=== PATIENT | male | born 1960 | race Caucasian/White ===

== ENCOUNTER 2016-06-27 06:43 | Observation (INO) | payer OTHER ==
--- NOTE | 2016-06-27 06:53 | CPEKG ---
Heart Rate: 70 RR Interval: 857 P-R Interval: 184 QRSD Interval: 98 QT Interval: 416 QTC Interval: 449 P [place]: 43 QRS [place]: -29 T Wave [place]: 43 EKG Severity - OTHERWISE NORMAL ECG - EKG Impression: SINUS RHYTHM EKG Impression: BORDERLINE LEFT AXIS DEVIATION Electronically Signed By: Ni Hunt 27-Jun-2016 07:17:55
--- NOTE | 2016-06-27 06:56 | EDPHY ---
H & P Time Seen by Provider: 06/27/16 06:53 HPI/ROS: CHIEF COMPLAINT: Shortness of breath, chest pain. HISTORY OF PRESENT ILLNESS: The patient is a 56-year-old male with a history of CAD, MD, and cardiac stent who presents with shortness of breath and chest pain. He first became short of breath last night. This morning when he got to work he became diaphoretic and the shortness of breath worsened. 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 He developed non-radiating dull left-sided chest pain on the ride to the hospital and still has mild left-sided discomfort. This is similar to his previous heart attack. He was diagnosed with bronchitis on Wednesday and has been on antibiotics since. He has been using an inhaler. He admits ongoing dry cough. He denies fever, peripheral edema, calf pain or swelling, recent travel, or other complaints. His father had a history of CAD in his 60s and of an MD at 79. REVIEW OF SYSTEMS: A ten point review of systems was performed and is negative with the exception of the items mentioned in the HPI. Source: Patient Exam Limitations: No limitations - Medical/Surgical History PMH: 1. CAD 2. MD 3. Cardiac stent 4. Hyperlipidemia 5. Hypertension I reviewed the patient's past medical notes including Discharge Summary dated . Hx Asthma: No Hx Chronic Respiratory Disease: No Hx Diabetes: No Hx Cardiac Disease: Yes Hx Renal Disease: No Hx Cirrhosis: No Hx Alcoholism: No Hx HIV/AIDS: No Hx Splenectomy or Spleen Trauma: No Other PMH: 1. Coronary artery disease, status post LAD stenting. 2. Anxiety - Family History Significant Family History: Heart disease - Social History Smoking Status: Current every day smoker Additional Social History: 1. Former smoker. 2. Here with partner. - Physical Exam Exam: General Appearance: Alert. Vital signs reviewed. BP 153/93. * Eyes: Pupils equal and round, no conjunctival injection, no discharge. Anicteric. ENT, Mouth: Mucous membranes are moist, no oropharyngeal erythema or edema. Neck: No lymphadenopathy, supple. Respiratory: Lungs are clear to auscultation; no wheezes, rales, or rhonchi. Mildly tachypneic. Cardiovascular: Regular rate and rhythm; no murmur, rub, or gallop. Gastrointestinal: Abdomen is soft and nontender, no masses or organomegaly, bowel sounds normal. Skin: Warm and dry, no rashes on exposed skin, normal color. Back: Nontender to palpation over the thoracolumbar spine. No CVAT. Extremities: No lower extremity edema, no calf tenderness or swelling. Neurological: Alert and oriented. Moving all four extremities easily and equally. Psychiatric: Normal affect. Constitutional: Initial Vital Signs Temperature (C) 36.4 C 06/27/16 06:58 Heart Rate 73 06/27/16 06:58 Respiratory Rate 24 H 06/27/16 06:58 Blood Pressure 153/93 H 06/27/16 06:58 O2 Sat (%) 98 06/27/16 06:58 O2 Delivery Mode Room Air Allergies/Adverse Reactions: No Known Allergies Allergy (Verified 01/26/16 09:36) Home Medications: Medication Instructions Recorded Albuterol [Proventil Inhaler HFA 1 - 2 puffs IH Q4H PRN 06/27/16 (*)] Amoxicillin/Clavulanate Pot 875 mg PO BID 06/27/16 [Augmentin 875 MG TAB (*)] Aspirin [Aspirin 81mg (*)] 81 mg PO DAILY 06/27/16 Atorvastatin Calcium [Lipitor 80 80 mg PO HS 06/27/16 mg] Benzonatate [Tessalon Pearles (RX)] 100 mg PO Q6H PRN 06/27/16 Carvedilol [Coreg (*)] 3.125 mg PO BIDMEAL 06/27/16 Cholecalciferol Vit D3 [Vitamin D3 5,000 units PO DAILY 06/27/16 (*)] Clopidogrel Bisulfate [Plavix (*)] 75 mg PO DAILY 06/27/16 Cyanocobalamin [Vitamin B12 (*)] 5,000 mcg PO DAILY 06/27/16 Herbals/Supplements -Info Only 1 ea PO DAILY 06/27/16 Sertraline HCl [Zoloft 50mg (*)] 50 mg PO DAILY 06/27/16 hydrOXYzine HCL 50 mg PO Q6H PRN 06/27/16 traZODone [traZODONE 100MG (*)] 100 mg PO HS PRN 06/27/16 Medical Decision Making - Diagnostics EKG Interpretation: The 12 lead EKG was interpreted by myself. See hard copy and/or "tracemaster" electronic copy for interpretation. Sinus rhythm, borderline left axis deviation. Imaging: Imaging Impressions Chest X-Ray 06/27/16 07:07 Impression: Central bronchitis, otherwise negative chest.. ED Course/Re-evaluation: 56-year-old male with a history of CAD, MD, and cardiac stenting in January of 2016, who presents with shortness of breath and left-sided chest pain. He describes an episode of worsening shortness of breath this morning while exerting himself at work during which he became diaphoretic. He then developed chest pain that he still has on presentation. His symptoms today are all very similar to when he had his previous MD in January 2016. He has been taking an antibiotic since Wednesday for bronchitis. He does have increased work of breathing. Oxygen saturation 99% on room air. An IV was established and labs ordered including cardiac enzymes. Chest x-ray, EKG obtained. 243mg PO Aspirin administered; he had taken a baby aspirin this morning. He felt somewhat better after receiving a DuoNeb. Lungs remain clear. I doubt pneumonia. His presentation in January of 2016, at which time he was found of 99% lad stenosis and underwent stenting, was with chest pain. He had 2-troponins but a small apical defect on a nuclear stress test. He did have chest pain while on the treadmill which prompted his cardiac catheterization. I independently viewed the patient's chest x-ray on the PACS system. My interpretation: bronchitis. Please see Imaging section for official radiologist report. I reviewed the patient's laboratory studies. Troponin, BNP, and d-dimer are negative. Lab work is otherwise unremarkable. 0746: Reassessed patient and discussed results of chest x-ray and lab work. I recommended admission for further cardiac workup and rule-out. He is comfortable with this plan. 0757: Consulted with Alicia Osborn, hospitalist. She accepts admission for Dr. Velasquez. Differential Diagnosis: Chest pain including but not limited to myocardial ischemia, pulmonary embolus, chest wall pain, pleural inflammation and pulmonary infectious causes. - Data Points Laboratory Results: Laboratory Results 06/27/16 06:52 06/27/16 06:52 06/27/16 06/27/16 06/27/16 06:52 06:52 06:52 WBC 10.43 10^3/uL H 10^3/uL (3.80-9.50) RBC 5.59 10^6/uL 10^6/uL (4.40-6.38) Hgb 16.9 g/dL g/dL (13.7-17.5) Hct 47.9 % % (40.0-51.0) MCV 85.7 fL fL (81.5-99.8) MCH 30.2 pg pg (27.9-34.1) MCHC 35.3 g/dL g/dL (32.4-36.7) RDW 12.3 % % (11.5-15.2) Plt Count 210 10^3/uL 10^3/uL (150-400) MPV 9.6 fL fL (8.7-11.7) Neut % (Auto) 80.1 % H % (39.3-74.2) Lymph % (Auto) 11.0 % L % (15.0-45.0) Dickens % (Auto) 6.1 % % (4.5-13.0) Eos % (Auto) 1.8 % % (0.6-7.6) Baso % (Auto) 0.5 % % (0.3-1.7) Nucleat RBC Rel Count 0.0 % % (0.0-0.2) Absolute Neuts (auto) 8.35 10^3/uL H 10^3/uL (1.70-6.50) Absolute Lymphs (auto) 1.15 10^3/uL 10^3/uL (1.00-3.00) Absolute Monos (auto) 0.64 10^3/uL 10^3/uL (0.30-0.80) Absolute Eos (auto) 0.19 10^3/uL 10^3/uL (0.03-0.40) Absolute Basos (auto) 0.05 10^3/uL 10^3/uL (0.02-0.10) Absolute Nucleated RBC 0.00 10^3/uL 10^3/uL (0-0.01) Immature Gran % 0.5 % % (0.0-1.1) Immature Gran # 0.05 10^3/uL 10^3/uL (0.00-0.10) D-Dimer < 0.27 ug/mLFEU ug/mLFEU (0.00-0.50) Sodium 141 mEq/L mEq/L (134-144) Potassium 4.1 mEq/L mEq/L (3.5-5.2) Chloride 108 mEq/L mEq/L (97-110) Carbon Dioxide 19 mEq/l L mEq/l (22-31) Anion Gap 14 mEq/L mEq/L (8-16) BUN 13 mg/dL mg/dL (7-23) Creatinine 0.7 mg/dL mg/dL (0.7-1.3) Estimated GFR > 60 Glucose 149 mg/dL H mg/dL (70-100) Calcium 9.6 mg/dL mg/dL (8.5-10.4) Troponin I < 0.012 ng/mL ng/mL (0-0.034) NT-Pro-B Natriuret Pep 28 pg/mL pg/mL (0-125) Medications Given: Discontinued Medications Albuterol/Ipratropium (Duoneb) 3 ml IH EDNOW ONE Stop: 06/27/16 07:11 Last Admin: 06/27/16 07:16 Dose: 3 ml Aspirin (Aspirin) 243 mg PO EDNOW ONE Stop: 06/27/16 07:10 Last Admin: 06/27/16 07:16 Dose: 243 mg Diazepam (Valium) 5 mg PO ONCALL ONE Stop: 06/27/16 13:17 Last Admin: 06/27/16 14:58 Dose: 5 mg Diphenhydramine HCl (Benadryl) 25 mg PO ONCALL ONE Stop: 06/27/16 13:17 Last Admin: 06/27/16 14:58 Dose: 25 mg Ibuprofen (Motrin) 600 mg PO ONCE ONE Stop: 06/27/16 11:38 Last Admin: 06/27/16 11:58 Dose: 600 mg Nitroglycerin (Nitrostat) 0.4 mg SL ONCE ONE Stop: 06/27/16 11:18 Last Admin: 06/27/16 11:28 Dose: 0.4 mg Departure - Departure Disposition: [facility] In[facility] Acute Clinical Impression: Bronchitis, Shortness of breath Chest pain Qualifiers: Chest pain type: unspecified Qualified Code(s): R07.9 - Chest pain, unspecified Condition: Fair Report Scribed for: Ni Hunt Report Scribed by: Slade Bansal Date of Report: 06/27/16 Time of Report: 06:59 Physician Review and Approval Statement: 06/27/16 06:56 Portions of this note were transcribed by the medical voucher clerk. I, Dr. Ni Hunt, personally performed the history, physical exam, and medical decision- making; and confirmed the accuracy of the information in the transcribed note.
[2016-06-27] MEDS ORDERED: ASPIRIN 81 MG CHEWABLE TAB PO ONE (07:09)
[2016-06-27] MEDS ORDERED: IPRATROPIUM/ALBUTEROL 3 ML DEYVIAL IH ONE (07:10)
[2016-06-27] MEDS ORDERED: IPRATROPIUM/ALBUTEROL 3 ML DEYVIAL ONE (07:11)
[2016-06-27] MEDS ORDERED: ASPIRIN 81 MG CHEWABLE TAB ONE (07:11)
[2016-06-27 07:16] LABS: % IMMATURE GRANULYOCYTES 0.5 % (0.0-1.1); ABSOLUTE IMMATURE GRANULOCYTES 0.05 10^3/uL (0.00-0.10); ADD DIFF? NO; ADD MORPH? NO; ADD SCAN? NO; ATYPICAL LYMPHOCYTE FLAG 0 (0-99); FRAGMENT RBC FLAG 0 (0-99); HEMATOCRIT 47.9 % (40.0-51.0); HEMOGLOBIN 16.9 g/dL (13.7-17.5); LEFT SHIFT FLG 0 (0-99); LIPEMIA HEMOLYSIS FLAG 90 (0-99); MEAN CELL HEMOGLOBIN 30.2 pg (27.9-34.1); MEAN CELL HEMOGLOBIN CONCENTR. 35.3 g/dL (32.4-36.7); MEAN CELL VOLUME 85.7 fL (81.5-99.8); MEAN PLATELET VOLUME 9.6 fL (8.7-11.7); PLATELET CLUMPS FLAG 80 (0-99); PLATELET COUNT 210 10^3/uL (150-400); RED BLOOD CELL COUNT 5.59 10^6/uL (4.40-6.38); RED CELL DISTRIBUTION WIDTH 12.3 % (11.5-15.2)
[2016-06-27 07:23] LABS: ANION GAP 14 mEq/L (8-16); CALCIUM 9.6 mg/dL (8.5-10.4); CARBON DIOXIDE 19 mEq/l (22-31); CHLORIDE 108 mEq/L (97-110); CREATININE 0.7 mg/dL (0.7-1.3); GLOMERULAR FILTRATION RATE > 60; GLUCOSE 149 mg/dL (70-100); POTASSIUM 4.1 mEq/L (3.5-5.2); SODIUM 141 mEq/L (134-144)
[2016-06-27 07:35] LABS: TROPONIN I < 0.012 ng/mL (0-0.034)
[2016-06-27] MEDS ORDERED: traZODone 100 MG TAB PO PRN (11:16)
[2016-06-27] MEDS ORDERED: ALBUTEROL 60 PUFFS/8 GM MDI IH PRN (11:16)
[2016-06-27] MEDS ORDERED: NITROGLYCERIN 0.4 MG BTL SL ONE (11:17)
[2016-06-27] MEDS ORDERED: IBUPROFEN 600 MG TAB PO ONE (11:37)
[2016-06-27] MEDS: AMOXICILLIN/CLAVULANATE POT 875/125 MG TAB PO SCH ×2 (11:47→20:38)
[2016-06-27] MEDS: CLOPIDOGREL BISULFATE 75 MG TAB PO SCH (11:47)
[2016-06-27] MEDS ORDERED: NITROGLYCERIN 0.4 MG BTL SL PRN (13:16)
[2016-06-27] MEDS ORDERED: DIAZEPAM 5 MG TAB PO ONE (13:16)
[2016-06-27] MEDS ORDERED: ACETAMINOPHEN 325 MG TAB PO PRN ×2 (13:16→13:56)
[2016-06-27] MEDS ORDERED: TEMAZEPAM 15 MG CAP PO PRN (13:16)
[2016-06-27] MEDS ORDERED: diphenhydrAMINE 25 MG CAP PO ONE (13:16)
[2016-06-27] MEDS ORDERED: ONDANSETRON DISINTEGRATING 4 MG TAB PO PRN (13:56)
[2016-06-27] MEDS ORDERED: ONDANSETRON 4 MG/2 ML VIAL IVP PRN (13:56)
--- NOTE | 2016-06-27 14:21 | GHP ---
[f rep st] HISTORY AND PHYSICAL DATE OF ADMISSION: 06/27/2016 CHIEF COMPLAINT: Chest pain. HISTORY OF PRESENT ILLNESS: This is a 56-year-old male with a history of coronary artery disease. He presented last fall with dyspnea on exertion and intermittent chest pain. He had a marginally ab normal stress test and was found to have a 99% LAD lesion. He states he had been doing well until a bout several weeks ago when he developed an upper respiratory tract infection that has progressed to bronchitis. He has been sick for the last 3 weeks. He has had a cough with green productive sputu m. He recently also had some fevers and chills. He was started on Augmentin a few days ago. He st ates that today he started having chest pain which is a pressure and with some radiation to his left arm. This is associated with some shortness of breath. This is very similar to a previous chest p ain that he had with his coronary artery disease. No recent fevers or chills. He still has a small amount of left-sided chest pain, although it is better. REVIEW OF SYSTEMS: A 10-point review of systems was obtained and otherwise negative. PAST MEDICAL HISTORY: 1. Coronary artery disease status post stenting to LAD. 2. Anxiety. 3. Hypertension. SOCIAL HISTORY: Quit smoking. No alcohol. FAMILY HISTORY: Father had coronary artery disease in his 60s. PHYSICAL EXAM: VITAL SIGNS: Afebrile, blood pressure is 100/63, heart rate 82, oxygen saturation 9 6% on room air. GENERAL: The patient is well developed, in no apparent distress. HEENT: Nonicter ic sclerae. Extraocular movements intact. Moist mucous membranes. NECK: Supple. No thyromegaly. LUNGS: Good effort. Clear to auscultation bilaterally. CARDIOVASCULAR: Regular rate and rhythm . No murmurs or gallops. ABDOMEN: Positive bowel sounds. Soft, nontender, nondistended. No hepa tosplenomegaly. EXTREMITIES: No clubbing, cyanosis, or edema. SKIN: Without rash. Dry and intac t. NEUROLOGIC: Moving all 4 extremities equally. PSYCH: Normal affect. LABS: White blood cell count slightly elevated at 10, troponins are negative x2. EKG personally re viewed and interpreted shows no ischemic changes. Chest x-ray personally reviewed and interpreted s hows some bronchitis. ASSESSMENT: This is a 56-year-old male with a history of coronary artery disease presenting with sy mptoms consistent with his previous unstable angina. PLAN: 1. Rule out unstable angina. The patient's troponins are negative and thus he is probably not havi ng an acute coronary syndrome at this time. I did discuss the case with Cardiology and he will prob ably undergo a heart catheterization due to the extreme similarity between his symptoms now and prev ious. If that is negative, he can probably be discharged home. 2. Bronchitis. We will continue the Augmentin that was started by his PCP. /[id number]/MODL
[2016-06-27] MEDS ORDERED: LIDOCAINE 1% 30 ML SDV ONE (14:53)
[2016-06-27] MEDS ORDERED: fentaNYL 100 MCG/2 ML INJ ONE (14:53)
[2016-06-27] MEDS ORDERED: IOPAMIDOL (ISOVUE-370) 150 ML BTL IV ONE (14:54)
[2016-06-27] MEDS ORDERED: VERAPAMIL 5 MG/2 ML VIAL ONE (14:54)
[2016-06-27] MEDS ORDERED: HEPARIN 10,000 UNIT/10 ML MDV ONE (14:54)
[2016-06-27] MEDS ORDERED: MIDAZOLAM 2 MG/2 ML VIAL ONE (14:54)
[2016-06-27] MEDS ORDERED: ETOMIDATE 40 MG/20 ML INJ ONE (15:19)
[2016-06-27] MEDS ORDERED: ATROPINE SULFATE 1 MG/10 ML SYR IVP PRN (15:49)
--- NOTE | 2016-06-27 16:56 | CPIP ---
[f rep st] INVASIVE CARDIAC PROCEDURE DATE OF PROCEDURE: 06/27/2016 PROCEDURE PERFORMED: 1. Selective coronary angiography. 2. Left heart catheterization. 3. Left ventriculogram. 4. TR-Band arteriotomy repair. This is a right radial approach. COMPLICATIONS: None. INDICATION FOR THE PROCEDURE: Presentation to the hospital with CCS Class IV symptoms of angina, ty pical of angina that he had prior to stent implantation. Specifically the patient was evaluated twi ce here in the hospital with negative noninvasive testing, including a nuclear stress test, before f inally, on his 3rd admission, being cathed by Dr. Elvis Ferraro, documenting a 99% obstruction of the LAD, which was successfully stented with a 2.25 mm stent. The patient presents with similar sym ptoms, and I am worried, given his history of a negative nuke with active disease, that a negative n uke would not be very reassuring given his symptoms. I, of course, explained to the patient that th e risk of a true restenoses rate was probably less than 10%. In any case, we agreed to proceed with cardiac catheterization as the most definitive test to rule out a problem. PROCEDURE IN DETAIL: After informed consent was obtained, n.p.o. status was confirmed, the region o f the right wrist was cleaned, prepped, and draped in sterile fashion. A plethysmography tracer ass isted Juliocesar test was performed, documenting dual arterial supply to the right hand and index finger. The patient then underwent the previously mentioned diagnostic procedure with the use of JL4 and A lphacurve coronary catheters, as well as a 5-[place] pigtail catheter. Standard wire exchange techni que was utilized for all catheter exchanges. The right coronary artery is dominant, giving rise to the posterior descending and posterior lateral ventricular branch. There are luminal irregularities consistent with underlying atherosclerosis. Maximal luminal stenosis is in the proximal portion of the blood vessel, estimated approximately 10% to 20%. The left main coronary lumen is approximately 6 mm in size. It bifurcates into an LAD and circumfle x system. The proximal circumflex is large, approximately 3 mm in size, and has diffuse luminal irr egularity consistent with underlying atherosclerosis. The LAD in its proximal segment is widely jordyn n, giving rise to 2 important diagonal branches. The distal LAD tapers fairly rapidly to a small ve ssel that has been previously stented with a 2.25 mm Synergy stent on January 27. The stent is w idely patent with 0% in-stent restenosis. There was excellent CHRISTOPHER-3 flow without a filling defect to suggest underlying thrombosis. The patient underwent left ventriculogram in the NORTH projection, demonstrating preserved left ventricular systolic function. Ejection fraction is 65%. No resting s egmental wall motion abnormalities were identified. The visualized portion of the thoracic aorta re veals 3 sinuses of Valsalva, most consistent with a trileaflet aortic valve. There was no evidence of a gradient upon pullback across the aortic valve, and the proximal portion of the thoracic aorta is normal in caliber without alex aneurysm or dissection. IMPRESSION AND PLAN: The patient has non flow-limiting coronary disease, with a widely open stent, with 0% residual stenosis or in-stent restenosis. The patient is a candidate for medical management , and should not receive a repeat catheterization for recurrent admissions for chest pain, unless th ere is objective evidence of ischemia, such as a changed or abnormal EKG, troponin elevation, alex myocardial infarction, or a large perfusion deficit on noninvasive nuclear medicine imaging. I have conferred these results to Dr. Britton Velasquez, who is the admitting physician. The patient could be a candidate for discharge this evening. /[id number]/MODL
[2016-06-27] MEDS: CARVEDILOL 3.125 MG TAB PO SCH (19:41)
[2016-06-27] MEDS ORDERED: ATORVASTATIN CALCIUM 40 MG TAB PO SCH (21:00)
[2016-06-27] MEDS ORDERED: NON-FORMULARY NEW DRUG (Atorvastatin Calcium [Lipitor 80 Mg] 80 MG) PO SCH (21:00)
[2016-06-28 01:12] VITALS: RESP 16
[2016-06-28 07:56] VITALS: BP 127/85; PULSE 74; TEMP 98.3; O2SAT 95
[2016-06-28] MEDS: AMOXICILLIN/CLAVULANATE POT 875/125 MG TAB PO SCH (08:44)
[2016-06-28] MEDS: CARVEDILOL 3.125 MG TAB PO SCH (08:44)
[2016-06-28] MEDS: CLOPIDOGREL BISULFATE 75 MG TAB PO SCH (08:44)
--- NOTE | 2016-06-28 08:48 | GDS ---
[f rep st] DISCHARGE SUMMARY DISCHARGE DIAGNOSES: 1. Acute bronchitis. 2. Noncardiac chest pain. 3. History of coronary artery disease. HISTORY: This is a 56-year-old male who had a history of a recent stenting to LAD, presenting with bronchitis and chest pain that was identical to previous angina. HOSPITAL COURSE: Patient was admitted. Cardiology was consulted. Due to the very similar nature o f his symptoms and the fact that his stress test was not very abnormal when he had a 99% stenosis of his LAD, he underwent heart catheterization. There was 0% restenosis. Chest pain has resolved and he is being discharged home. DISCHARGE MEDICATIONS: He is to resume all of his home medicines. He will also continue Augmentin for bronchitis. /[id number]/MODL
[2016-06-28] MEDS ORDERED: SERTRALINE HCL 50 MG TAB PO SCH (09:00)
[2016-06-28] MEDS ORDERED: ASPIRIN 81 MG CHEWABLE TAB PO SCH (09:00)
== END 2016-06-28 11:58 | disposition home or self-care (01) ==
LOC: UNDOADMOB 08:03 → F2W 09:01
PROVIDERS: ADMIT Internal Medicine; ATTEND Internal Medicine
PROC: B2151ZZ Fluoroscopy of Left Heart using Low Osmolar Contrast (ICD-10-PCS; principal; 2016-06-27)
PROC: B2111ZZ Fluoroscopy of Multiple Coronary Arteries using Low Osmolar Contrast (ICD-10-PCS; principal; 2016-06-27)
PROC: 4A023N7 Measurement of Cardiac Sampling and Pressure, Left Heart, Percutaneous Approach (ICD-10-PCS; principal; 2016-06-27)
DX: J20.9 Acute bronchitis, unspecified (principal); I20.9 Angina pectoris, unspecified; Z86.79 Personal history of other diseases of the circulatory system; Z82.49 Family history of ischemic heart disease and other diseases of the circulatory system; Z95.5 Presence of coronary angioplasty implant and graft; I25.2 Old myocardial infarction; E78.5 Hyperlipidemia, unspecified; I10 Essential (primary) hypertension; F17.210 Nicotine dependence, cigarettes, uncomplicated
CPT/HCPCS: 71020; 93005; 93458; C1769; G0378; J1644; J2250; J3010; Q9967

== ENCOUNTER 2017-06-18 06:02 | Day surgery (SDC) | payer OTHER ==
[2017-06-18] MEDS ORDERED: DIAZEPAM 5 MG TAB PO ONE (06:10)
[2017-06-18] MEDS ORDERED: ASPIRIN EC 325 MG TAB PO ONE ×2 (06:10→06:50)
[2017-06-18] MEDS ORDERED: diphenhydrAMINE 25 MG CAP PO ONE ×2 (06:10→06:49)
[2017-06-18] MEDS ORDERED: FAMOTIDINE 20 MG TAB PO ONE (06:10)
[2017-06-18] MEDS ORDERED: NS 1,000 ML IV ONE (06:10)
--- NOTE | 2017-06-18 06:46 | CPEKG ---
Heart Rate: 71 RR Interval: 845 P-R Interval: 176 QRSD Interval: 100 QT Interval: 404 QTC Interval: 439 P [place]: 58 QRS [place]: -37 T Wave [place]: 61 EKG Severity - OTHERWISE NORMAL ECG - EKG Impression: SINUS RHYTHM EKG Impression: LEFT AXIS DEVIATION Electronically Signed By: Chet Lee 18-Jun-2017 08:24:47
[2017-06-18] MEDS ORDERED: FAMOTIDINE 20 MG TAB ONE (06:49)
[2017-06-18] MEDS ORDERED: DIAZEPAM 5 MG TAB ONE (06:50)
[2017-06-18 06:56] LABS: PLATELET COUNT 140 10^3/uL (150-400)
[2017-06-18 07:06] LABS: PROTIME(PATIENT) 13.4 SEC (12.0-15.0)
[2017-06-18] MEDS ORDERED: fentaNYL 100 MCG/2 ML INJ ONE (09:37)
[2017-06-18] MEDS ORDERED: VERAPAMIL 5 MG/2 ML VIAL ONE (09:37)
[2017-06-18] MEDS ORDERED: LIDOCAINE 1% 300 MG/30 ML SDV ONE (09:37)
[2017-06-18] MEDS ORDERED: HEPARIN 10,000 UNIT/10 ML MDV (1,000 UNIT/ML) ONE (09:37)
[2017-06-18] MEDS ORDERED: MIDAZOLAM 2 MG/2 ML VIAL ONE (09:37)
[2017-06-18] MEDS ORDERED: IOPAMIDOL (ISOVUE-370) 150 ML BTL IV ONE (09:38)
--- NOTE | 2017-06-18 09:51 | PDHPUP ---
History & Physical Update H&P update statement: This history and physical update is based on an assessment of the patient which was completed after admission or registration (within 24 hours), but prior to the surgery/procedure. H&P update: H&P reviewed & patient examined, no change in patient's condition since H&P completed
--- NOTE | 2017-06-18 09:52 | PDPROPOC ---
Sedation Plan of Care Sedation Plan of Care: vital signs stable, mental status noted, patient educated of risks, benefits, alternatives, patient can tolerate sedation ASA Classification: ASA 1 Planned drugs: fentanyl, midazolam Mallampati Score: Class 2 Mallampati Reference Image: Patient passed 3-3-2 rule?: Yes
[2017-06-18] MEDS ORDERED: ONDANSETRON 4 MG/2 ML VIAL IVP PRN (11:01)
[2017-06-18] MEDS ORDERED: HYDROCODONE/APAP 5/325 TAB PO PRN (11:01)
[2017-06-18] MEDS ORDERED: ATROPINE SULFATE 1 MG/10 ML SYR IVP PRN (11:01)
[2017-06-18] MEDS ORDERED: NITROGLYCERIN 0.4 MG BTL SL PRN (11:01)
--- NOTE | 2017-06-18 11:07 | PDDXCAT ---
Diagnostic Cath Note - . 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 LAD: Fluoroscopy reveals the presence of a previously placed stent at the junction of the mid and distal LAD. Angiography reveals that the stent is widely patent. The remainder of the LAD and its branches exhibit minimal luminal irregularities. LCX: Mild irregularities. RCA: Mild to moderate irregularities. EDP: 24 mmHg LVEF: 55% Wall motion: Normal Complications: None Estimated blood loss: <50ml Closure method: TR Band Assessment: 1) [id number] CAD as described above. 2) Patent site of prior stent placement. 3) Normal LV systolic function. Patient Problems: Problems Problem Status Onset Arm paresthesia, left Acute Bronchitis Acute Chest pain Acute Chest pain Acute Coronary arteriosclerosis Acute Paresthesia of left foot Acute Shortness of breath Acute Status post insertion of drug-eluting stent into left anterior descending (LAD) artery Acute Syncope Acute
== END 2017-06-18 13:35 | disposition home or self-care (01) ==
LOC: FCATH 06:02
PROVIDERS: ATTEND Internal Medicine Interventional Cardiology
DX: R55 Syncope and collapse (principal); R07.89 Other chest pain; I25.10 Atherosclerotic heart disease of native coronary artery without angina pectoris; Z95.5 Presence of coronary angioplasty implant and graft; E78.5 Hyperlipidemia, unspecified; I10 Essential (primary) hypertension
CPT/HCPCS: 93005; 93458; C1769; J1200; J1644; J2250; J3010; Q9967